=== PATIENT | female | born 1960 | race Caucasian/White ===

== ENCOUNTER 2017-08-26 08:15 | Emergency (ER) | payer SELFPAY ==
[2017-08-26] MEDS ORDERED: Clindamycin 150 MG CAP ONE (08:35)
== END 2017-08-26 08:40 | disposition home or self-care (01) ==
LOC: BURERS 08:15
DX: L03.116 Cellulitis of left lower limb (principal); E03.9 Hypothyroidism, unspecified; Z79.899 Other long term (current) drug therapy
CPT/HCPCS: 99283